=== PATIENT | male | born 1995 | race Two or more races ===

== ENCOUNTER 2020-02-25 16:17 | Observation (INO) ==
[2020-02-25] MEDS ORDERED: ONDANSETRON INJ 2 MG/ML 2 ML VIAL IV STA (17:01)
[2020-02-25] MEDS ORDERED: MoRPHine SULFATE 4 MG/ML 1 ML CARP\\VIAL IV STA (17:01)
--- NOTE | 2020-02-25 17:06 | Emergency Department Note ---
History of Present Illness General Chief complaint: Abdominal Pain Stated complaint: ABD PAIN Time Seen by Provider: 02/25/20 16:50 Source: patient Limitations: no limitations History of Present Illness Provider complaint: Abdominal pain Onset (ago): hour(s) Location: abdomen, left and right Radiation: non-radiation Severity: severe Maximum Pain Intensity: 8 Current Pain Intensity: 4 Quality: + burning Relieved By: + other (Vomiting) Associated symptoms: + cough (Chronic cough with no recent change) and + nausea/vomiting; no chest pain, no fever/chills and no shortness of breath This is a 24-year-old male who presents with abdominal pain starting at approximately 7 AM this morning. The patient states he stayed up all night. At 6 AM he ate 3 bananas and ate cookies. He try to go to bed but was having lower abdominal pain which made it difficult for him to sleep. He describes the pain as a dry burning pain. It was originally an 8 out of 10 in severity but after vomiting he states it is now 4 out of 10. He denies any associated fevers, ch est pain, shortness of breath, diarrhea or urinary symptoms. The patient states that his last bowel movement was 24 hours ago. He denies any known exposure to COVID-19. He does state that he has a chronic cough and has exercise-induced asthma. He denies recent alcohol use other than 3 days ago but only stated that he had a little bit. Home Medications Home Medications Medication Instructions Recorded Confirmed Type cetirizine [Zyrtec] 10 mg PO DAILY PRN 02/25/20 02/25/20 History Allergies Allergy/AdvReac Type Severity Reaction Status Date / Time avocado AdvReac "Cannot Unverified 02/25/20 17:17 process them" ibuprofen AdvReac Unknown Unverified 02/25/20 17:17 Past Med/Surg History Medical History Exercise-induced asthma Social History Preferred Language: Malay Feels Safe at Home: Yes Smoking Status: Current every day smoker Hx Alcohol Use: Yes Hx Substance Use: Yes substance use type: marijuana Last Used Substance: Hours (ago) (24 hours) Review of Systems See HPI for pertinent positives & negatives. and A total of 10 systems reviewed and were otherwise negative Physical Exam Vital Signs Vital Signs - 24 hr 02/25/20 16:42 02/25/20 18:49 Temperature 37.0 C Temperature Source Oral Pulse Rate 59 L Pulse Rate [Apical] 82 Respiratory Rate 16 18 Blood Pressure 113/58 L Blood Pressure [Right Arm] 138/81 Blood Pressure Mean 76 Blood Pressure Mean [Right Arm] 100 Pulse Oximetry 97 100 Oxygen Delivery Method Room Air Room Air Sepsis Recent Fever Within 48 Hours No Sepsis New/Unexplained Change in Mental Status No Sepsis Action Taken by Nursing No Action Required Constitutional: Vital signs reviewed. Eyes: Pupils are equal round reactive to light. Conjunctiva are noninjected. ENT: Pharynx is clear without erythema or exudate. Mucous membranes are dry. Neck supple without meningeal signs. Respiratory: Clear to auscultation bilaterally. Breath sounds are equal bilaterally. Cardiovascular: Regular rate and rhythm. No rubs or gallops. GI: Soft, nondistended with diffuse tenderness throughout. No guarding. Bowel sounds are present. Musculoskeletal: No peripheral edema. No CVA tenderness. Integumentary: No cyanosis. or jaundice. Neurological: The patient is awake and alert. No focal deficits. Psychiatric: Normal affect. Not anxious appearing. Course Administered Medications Ioversol (Optiray 320 100ml) 93 ml IV ONCE PRN PRN Reason: Interaction Checking Stop: 02/29/20 17:55 Last Admin: 02/25/20 17:57 Dose: 93 ml Documented by: [id number] Discontinued Medications Bupivacaine HCl (Marcaine 0.5% Mpf) Confirm Administered Dose 30 ml .ROUTE .STK- MED ONE Stop: 02/25/20 19:17 Last Admin: 02/25/20 21:20 Dose: 22 ml Documented by: [id number] Sodium Chloride (Nss 1000ml) 1,000 mls @ 999 mls/hr IV .Q1H1M [facility] Stop: 02/25/20 18:15 Last Infusion: 02/25/20 18:51 Dose: 0 mls/hr Documented by: [id number] Admin: 02/25/20 17:39 Dose: 999 mls/hr Documented by: [id number] Cefoxitin Sodium (Mefoxin) 2,000 mg in 60 mls @ 100 mls/hr IV NOW STA Stop: 02/25/20 19:41 Last Admin: 02/25/20 19:36 Dose: 100 mls/hr Documented by: [id number] Morphine Sulfate (Morphine Sulfate) 4 mg IV NOW STA Stop: 02/25/20 17:02 Last Admin: 02/25/20 17:39 Dose: 4 mg Documented by: [id number] Ondansetron HCl (Zofran) 4 mg IV NOW STA Stop: 02/25/20 17:02 Last Admin: 02/25/20 17:39 Dose: 4 mg Documented by: [id number] Medical Decision Making Differential Diagnosis Appendicitis, perforation, abscess, bowel obstruction, constipation, IBS, IBD Medical Records Attestation: I reviewed the patient's medical records. I did perform a limited focused review of portions of the patient's old chart on the electronic medical record. The patient has had no prior visits to this hospital. Home Medications Current Medication List: was personally reviewed by me Laboratory Data Attestation: I reviewed the patient's lab results. Result diagrams: 02/25/20 17:26 02/25/20 17:26 Lab Results 02/25/20 02/25/20 Range/Units 17:26 17:26 WBC 9.31 (4.8-10.8) K/uL RBC 5.00 (4.7-6.1) M/uL Hgb 16.1 (14.0-18.0) g/dL Hct 45.5 (42-52) % MCV 91.0 (80-100) fL MCH 32.2 (25-34) pg MCHC 35.4 (32-36) g/dL RDW Std Deviation 41.5 (36.4-46.3) fL RDW Coeff of Cash 12.5 (11.5-14.5) % Plt Count 288 (130-400) K/uL MPV 9.9 (7.4-10.4) fL Immature Gran % (Auto) 0.2 % Neut % (Auto) 79.3 % Lymph % (Auto) 11.2 % [place] % (Auto) 8.2 % Eos % (Auto) 0.9 % Baso % (Auto) 0.2 % Neut # (Auto) 7.39 H (1.4-6.5) K/uL Lymph # (Auto) 1.04 L (1.2-3.4) K/uL [place] # (Auto) 0.76 H (0.11-0.59) K/uL Eos # (Auto) 0.08 (0-0.5) K/uL Baso # (Auto) 0.02 (0-0.2) K/uL Immature Gran # (Auto) 0.02 (0.00-0.02) K/uL Sodium 138 (136-145) mmol/L Potassium 4.1 (3.5-5.1) mmol/L Chloride 104 (98-107) mmol/L Carbon Dioxide 28 (21-32) mmol/L Anion Gap 6.0 (3-11) BUN 13 (7-18) mg/dl Creatinine 1.18 (0.6-1.4) mg/dl Est Cr Clr Drug Dosing 144.4 ml/min Est GFR ( Amer) 100.9 Est GFR (Non-Af Amer) 87.1 BUN/Creatinine Ratio 11.1 (10-20) Glucose 88 (70-99) mg/dl Calcium 9.2 (8.5-10.1) mg/dl Total Bilirubin 0.5 (0.2-1) mg/dl AST 16 (15-37) U/L ALT 30 (12-78) U/L Alkaline Phosphatase 61 (45-117) U/L Total Protein 8.3 H (6.4-8.2) gm/dl Albumin 4.2 (3.4-5.0) gm/dl Globulin 4.1 H (2.5-4.0) gm/dl Albumin/Globulin Ratio 1.0 (0.9-2) Lipase 107 (73-393) U/L Imaging Data Radiologist's Impression: CT abd pelvis IV con only CLINICAL HISTORY: Right lower quadrant abdominal pain COMPARISON STUDY: None. TECHNIQUE: The patient was scanned in a dynamic helical fashion during intravenous administration of 93 cc of Optiray 320. A dose lowering technique was utilized adhering to the principles of ALARA. CT DOSE: 1789.72 mGy.cm FINDINGS: Lower chest: The heart is normal in size and configuration, without pericardial effusion. The lung bases and pleural spaces are clear. Liver: The contrast-enhanced liver is normal in size, contour, and attenuation. There is no intrahepatic biliary ductal dilatation. The hepatic veins and portal veins are patent. Gallbladder: Unremarkable. Spleen: Normal in size and attenuation. Pancreas: Unremarkable. Adrenal glands: Unremarkable. Kidneys: There is symmetric renal cortical enhancement. The kidneys are normal in size without hydronephrosis. Bowel: There are no transition zones to indicate bowel obstruction. There is no evidence of acute diverticulitis. There is a dilated fluid-filled appendiceal tip measuring 1 cm in diameter. There is an appendicolith. There is minimal periappendiceal stranding. The findings are suggestive of early acute appendicitis. Peritoneum: There is no intraperitoneal free air or abdominal ascites. Vasculature: The abdominal aorta is normal in course and caliber. Adenopathy: None. Pelvic viscera: The bladder, and pelvic viscera are unremarkable. Skeletal structures: No destructive osseous lesions are seen. IMPRESSION: 1. Long appendix with a distal appendicolith and dilatation of the appendiceal tip which measures 1 cm with subtle periappendiceal stranding. In the setting of right lower quadrant abdominal pain, the findings are indicative of acute appendicitis and surgical consultation is recommended ACT 112: Negative or not required by law. Electronically signed by: Ken De Luna M.D. 02/25/2020 6:08 PM Dictated: 02/25/201802 Transcribed: 02/25/201802 Blood Pressure Blood Pressure Findings: Low blood pressure MDM Narrative I did evaluate the patient as noted above. IV access was established. I did treat him with IV morphine and Zofran. He was also given a liter normal saline IV. I did order a urine analysis. I did order and review the patient's blood work as noted in the electronic medical record. His white blood cell count is not elevated. LFTs and electrolytes are unremarkable. I did order a CT of the abdomen and pelvis. I did review the images myself as well as the radiology report as described above. He does have acute appendicitis without complication. I did discuss the test results with the patient. I did discuss the case with the surgical service. He was taken to the OR for appendectomy. Impression & Plan Acute appendicitis Discharge Plan Visit Data *Final* Discharge Date/Time: 02/25/20 19:41 Chief Complaint: Abdominal Pain Stated Complaint: ABD PAIN ED Provider: Ton Mohan Discharge Problem: Acute appendicitis Patient Disposition: Admitted As Inpatient Discharge Instructions Interventions: ED Discharge Assessment Last Done: 02/25/20 19:36
[2020-02-25] MEDS ORDERED: SODIUM CHLORIDE 0.9% 1000ML 1,000 ML IV SCH (17:15)
[2020-02-25 17:35] LABS: Basophils # (auto) 0.02 K/uL (0-0.2); Basophils % (auto) 0.2 %; Eosinophils # (auto) 0.08 K/uL (0-0.5); Eosinophils % (auto) 0.9 %; Hematocrit (blood only) 45.5 % (42-52); Hemoglobin 16.1 g/dL (14.0-18.0); Immature Granulocytes # (auto) 0.02 K/uL (0.00-0.02); Immature Granulocytes % (auto) 0.2 %; Lymphocytes # (auto) 1.04 K/uL (1.2-3.4); Lymphocytes % (auto) 11.2 %; Mean Corpuscular Hemoglobin 32.2 pg (25-34); Mean Corpuscular Hgb Conc 35.4 g/dL (32-36); Mean Platelet Volume 9.9 fL (7.4-10.4); Monocytes # (auto) 0.76 K/uL (0.11-0.59); Monocytes % (auto) 8.2 %; Neutrophils # (auto) 7.39 K/uL (1.4-6.5); Neutrophils % (auto) 79.3 %; Platelet Count 288 K/uL (130-400); RDW Coefficient of Variation 12.5 % (11.5-14.5); RDW Standard Deviation 41.5 fL (36.4-46.3); White Blood Count 9.31 K/uL (4.8-10.8)
[2020-02-25 17:55] LABS: Albumin Level 4.2 gm/dl (3.4-5.0); BUN Creatinine Ratio 11.1 (10-20); Calcium 9.2 mg/dl (8.5-10.1); Creatinine Clr Calc Pharmacy 144.4 ml/min; Est GFR (African American) 100.9; Est GFR (Non-African American) 87.1; Potassium 4.1 mmol/L (3.5-5.1)
[2020-02-25] MEDS ORDERED: IOVERSOL 100ml IV PRN (17:56)
[2020-02-25 17:58] LABS: Bilirubin,Total 0.5 mg/dl (0.2-1); Globulin 4.1 gm/dl (2.5-4.0); Total Protein 8.3 gm/dl (6.4-8.2)
--- NOTE | 2020-02-25 18:10 | CT Scan Report ---
CT abd pelvis IV con only CLINICAL HISTORY: Right lower quadrant abdominal pain COMPARISON STUDY: None. TECHNIQUE: The patient was scanned in a dynamic helical fashion during intravenous administration of 93 cc of Optiray 320. A dose lowering technique was utilized adhering to the principles of ALARA. CT DOSE: 1789.72 mGy.cm FINDINGS: Lower chest: The heart is normal in size and configuration, without pericardial effusion. The lung ba ses and pleural spaces are clear. Liver: The contrast-enhanced liver is normal in size, contour, and attenuation. There is no intrahepa tic biliary ductal dilatation. The hepatic veins and portal veins are patent. Gallbladder: Unremarkable. Spleen: Normal in size and attenuation. Pancreas: Unremarkable. Adrenal glands: Unremarkable. Kidneys: There is symmetric renal cortical enhancement. The kidneys are normal in size without hydron ephrosis. Bowel: There are no transition zones to indicate bowel obstruction. There is no evidence of acute div erticulitis. There is a dilated fluid-filled appendiceal tip measuring 1 cm in diameter. There is an appendicolith. There is minimal periappendiceal stranding. The findings are suggestive of early acute appendicitis. Peritoneum: There is no intraperitoneal free air or abdominal ascites. Vasculature: The abdominal aorta is normal in course and caliber. Adenopathy: None. Pelvic viscera: The bladder, and pelvic viscera are unremarkable. Skeletal structures: No destructive osseous lesions are seen. IMPRESSION: 1. Long appendix with a distal appendicolith and dilatation of the appendiceal tip which measures 1 c m with subtle periappendiceal stranding. In the setting of right lower quadrant abdominal pain, the f indings are indicative of acute appendicitis and surgical consultation is recommended ACT 112: Negative or not required by law. Electronically signed by: Ken De Luna M.D. 02/25/2020 6:08 PM
[2020-02-25] MEDS ORDERED: cefOXitin 2,000 MG/60 ML BAG IV STA (19:06)
--- NOTE | 2020-02-25 19:09 | Anesthesiology Consultation ---
Date of Service February 25, 2020 Assessment & Plan Chart Review Chart Review: Acceptable Risk for Surgery and Patient NOT seen in Pre Admission Testing Consults Requested none ASA [id number] Proposed Anesthesia Anesthesia Type: General Risk / Benefits Reviewed With: PT / POA / Parent / Guardian, Accepts Plan and Informed Consent Obtained Additional Comments: not covid tested History Surgery Operation Date: 02/25/20 19:20 Proposed Procedures p Laparoscopic Appendectomy - Calin Zhang, DO, FACS Height/Weight Height: 6 ft 1 in Weight: 140 kg Allergies Allergy/AdvReac Type Severity Reaction Status Date / Time avocado AdvReac "Cannot Unverified 02/25/20 17:17 process them" ibuprofen AdvReac Unknown Unverified 02/25/20 17:17 Medications Home Medications Medication Instructions Recorded Confirmed Last Taken cetirizine [Zyrtec] 10 mg PO DAILY PRN 02/25/20 02/25/20 Unknown Active Medications Generic Name Dose Route Start Last Admin Trade Name Freq PRN Reason Stop Dose Admin Ioversol 93 ml 02/25/20 17:56 02/25/20 17:57 Optiray 320 100ml IV 02/29/20 17:55 93 ml ONCE PRN Administration Interaction Checking NPO Date Last Intake of Fluids: 02/25/20 Time Last Intake of Fluids: 15:00 Last Intake of Fluids Comment: pt vomited soon thereafter liquids Date Last Intake of Solids: 02/25/20 Time Last Intake of Solids: 08:00 Past Medical History Medical History Exercise-induced asthma Exercise / Class Metabolic Activity II 4-5 Yardwork/Stairs/Walk up hill Past Anesthesia History No Hx of Anesthesia Complications and No Family Hx of Anesthesia Complications History of PONV No Hx of PONV and No Hx of Motion Sickness Social History Smoking Status: Current every day smoker Hx Alcohol Use: Yes Hx Substance Use: Yes substance use type: marijuana Last Used Substance: Hours (ago) (24 hours) Physical Exam Vital Signs Last Vital Signs Temp 37.0 C 02/25/20 16:42 Pulse 82 02/25/20 18:49 Resp 18 02/25/20 18:49 BP 138/81 02/25/20 18:49 Pulse Ox 100 02/25/20 18:49 Constitutional + morbidly obese ENMT Mouth: + dentition abnormality (braces); dentition not poor Thyromental Distance: > or= 3.5 Finger Breadths Mallampati Class: II Neck normal visual inspection, trachea midline, + thick neck and + facial hair; neck extension not limited Respiratory normal respiratory effort Auscultation: lungs clear to auscultation bilaterally Cardiovascular Rate/Rhythm: regular rate and regular rhythm Heart Sounds: no murmur Musculoskeletal Spine: normal cervical ROM Extremities: extremities normal to inspection Neurologic moves all extremities Motor/Sensory: no sensory deficit Psychiatric Orientation: alert and oriented x 3 Testing Laboratory Results 02/25/20 17:26 02/25/20 17:26
[2020-02-25] MEDS ORDERED: BUPIVACAINE 0.5 % 5 MG/1 ML MPF 30ML VIAL ONE (19:16)
--- NOTE | 2020-02-25 19:17 | History & Physical Report ---
Date of Service February 25, 2020 Assessment & Plan (1) Acute appendicitis: -plan on laparoscopic, possible open appendectomy today -pre-op antibiotics ordered -risk, benefits and alternative discussed with pt. 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 The pain shifted mostly to the RLQ, but is now generalized through his abdomen. No palliative or provocative factors noted. He denies fevers, but has had N/V. He ate some solid food around 0600 and has only had water about 5 hours ago but he notes having N/V shortly after drinking the water. In the ED he was in no distress, was afebrile with normal WBC. CT scan of the abdomen showed findings concerning for acute appendicitis. Allergies Allergy/AdvReac Type Severity Reaction Status Date / Time avocado AdvReac "Cannot Unverified 02/25/20 17:17 process them" ibuprofen AdvReac Unknown Unverified 02/25/20 17:17 Home Medications Home Medications Medication Instructions Recorded Confirmed Type cetirizine [Zyrtec] 10 mg PO DAILY PRN 02/25/20 02/25/20 History Past Med/Surg History Medical History Exercise-induced asthma Social History Preferred Language: Pashto Feels Safe at Home: Yes Smoking Status: Current every day smoker Hx Alcohol Use: Yes Hx Substance Use: Yes substance use type: marijuana Last Used Substance: Hours (ago) (24 hours) Review of Systems Constitutional: no fever and no sweats Eyes: no diplopia Ear, Nose, Mouth, Throat: no ear pain Respiratory: no cough and no dyspnea Cardiovascular: no chest pain Gastrointestinal: + abdominal pain, + nausea and + vomiting Genitourinary: no dysuria Musculoskeletal: no back pain Integumentary: no rash Neurologic: no localized weakness Physical Exam Constitutional: well developed and well nourished; no acute distress Eyes: no conjunctival abnormality ENMT: Ears: no hearing impairment Nose: + dry nasal mucous membranes Neck: trachea midline Respiratory: normal respiratory effort, lungs clear to auscultation Cardiovascular: Rate/Rhythm: regular rate and regular rhythm Vessels: dorsalis pedis pulses present and radial pulses present Gastrointestinal (Abdomen): abdomen is soft, rotund, and not-distended; BS are hypoactive; pain noted most pronounced in RLQ with rebound tenderness noted. (+) Rovsing sign Musculoskeletal: no calf tenderness Skin: no rashes, warm and dry Neurologic: moves all extremities Psychiatric: A+Ox3, euthymic affect Results & Data Results & Data ([facility]) Vital Signs (Past 12 Hours) Vital Signs Temp Pulse Pulse Resp BP BP Pulse Ox 02/25/20 18:49 82 18 138/81 100 02/25/20 16:42 37.0 C 59 L 16 113/58 L 97 Supervising Physician Co-Signing Physician Notes Patient seen and examined, labs and imaging reviewed, agree with above. 24-year-old male presents to the emergency department with abdominal pain. On exam he is afebrile with stable vitals. Tender to palpation in the right lower quadrant with guarding at McBurney's point. No leukocytosis but predominant neutrophilia. CT scan showed inflammation of the distal appendix with an appendicolith consistent with appendicitis and no evidence of perforation. Acute appendicitis Plan for laparoscopic appendectomy The risk the procedure were discussed to include but not limited to bleeding, infection, normal appendix, conversion to open, damage surrounding structures, need for future more extensive surgery, and the risk of anesthesia The diagnosis, details the procedure and recovery, and plan of care were discussed with the patient, all questions were answered, the patient expressed understanding agrees the plan of care as stated PG Care Time/CCT Total # of Minutes Spent Total Time Spent with Patient: Total time spent is greater than 50% in coordination of care (as documented) at patient's floor/unit and/or counseling patient: Coding Level of Care Code 00656 OBS Care - Level 3 Diagnoses Acute appendicitis K35.80
[2020-02-25] MEDS ORDERED: LIDOCAINE HCL 2% 2 ML VIAL/AMP(20MG/ML) INFIL ONE (19:40)
[2020-02-25] MEDS ORDERED: ONDANSETRON INJ 2 MG/ML 2 ML VIAL ONE ×2 (19:40→20:49)
[2020-02-25] MEDS ORDERED: PROPOFOL IV EMULSION 10 MG/ML 20 ML VIAL IV ONE ×2 (19:40→20:46)
[2020-02-25] MEDS ORDERED: DEXAMETHASONE SOD INJ 4 MG/ML VIAL ONE (19:40)
[2020-02-25] MEDS ORDERED: SUCCINYLCHOLINE CHLORIDE 20 MG/ML 10 ML VIAL IV ONE (19:40)
[2020-02-25] MEDS ORDERED: ROCURONIUM BROMIDE 10 MG/ML 5 ML VIAL IV ONE (19:40)
[2020-02-25] MEDS ORDERED: MIDAZOLAM HCL 1 MG/ML 2ML VIAL ONE (19:49)
[2020-02-25] MEDS ORDERED: fentaNYL citrate 100 MCG/2 ML VIAL ONE (19:49)
[2020-02-25] MEDS ORDERED: DexMEDEtomidine HCL IV 100 MCG/ML VIAL ONE (20:02)
[2020-02-25] MEDS ORDERED: HYDROmorphone INJ 2 MG/ML SYR/VIAL ONE (20:48)
[2020-02-25] MEDS ORDERED: PHENYLEPHRINE HCL 10 MG/ML VIAL ONE (20:54)
--- NOTE | 2020-02-25 21:27 | Operative Report ---
PG Post Operative Report Pre & Post Diagnosis Operation Date: 02/25/20 19:20 Pre-Op Diagnosis: Acute appendicits Post-Op Diagnosis: Acute nonperforated appendicits I identified the patient and participated in the time-out.: Yes Procedure Operation Date: 02/25/20 19:20 Actual Procedures p Laparoscopic Appendectomy - Calin Zhang DO, FACS Surgeon Calin Zhang DO, FACS Practicing Md Anesthesiologist Zain Louis Estimated Blood Loss 5 Findings Consistent with Post-Op Diagnosis Retrocecal appendix with tip appendicitis. Mobilized with harmonic scalpel. Stable to base. Good hemostasis. No perforation. Specimens Appendix Anesthesia Type General Complications none Disposition Accompanied Patient To Recovery: No Disposition: Recovery Room Indications 24-year-old male who presents with a signs and symptoms of acute appendicitis confirmed by CT scan. Plan for laparoscopic appendectomy. The risks of the procedure were discussed, all questions were answered, and the patient agreed to proceed with surgery as planned. Description of Procedure The patient was properly identified, consented, and taken to the operating room where he was placed in the supine position. General endotracheal anesthesia was induced. SCDs and a safety belt were placed. Preoperative antibiotics were administered. A Leonard catheter was not placed. The patient's abdomen was prepped and draped in the standard sterile fashion. Surgical timeout was performed and all parties were in agreement that this was the correct patient and procedure to be performed and we continued as planned. A curvilinear infraumbilical incision was made with electrocautery and deepened down to the fascia with blunt dissection. The base of the umbilicus was grasped with a Oneal and elevated towards the ceiling. An incision was made in the midline fascia with a knife and entry into the peritoneum was confirmed. Stay suture of 0 Vicryl was placed and a Teran trocar was inserted. The abdomen was insufflated with carbon dioxide which the patient tolerated without incident. The laparoscope was inserted and no damage from initial trocar placement was noted, no gross abnormalities were noted within the 4 quadrants the abdomen. 5 mm ports were then placed in the left lower quadrant with care not to damage the epigastric vessels, and in the suprapubic midline with care not to damage the bladder. The patient was placed in Trendelenburg position and rotated towards the left. The small bowel was swept away from the right lower quadrant. The cecum was gr asped with an atraumatic grasper exposing the appendix. The appendix was retrocecal and the tip was inflamed. There was no evidence of perforation. There was no fluid in the pelvis. The appendix was mobilized using the harmonic scalpel. The mesoappendix was divided with the harmonic scalpel and hemostasis was good. A albright loaded endoscopic stapler was then used to divide the appendix at its base. Hemostasis was good. The appendix was placed in an Endo Catch bag and removed through the umbilical port site. The right lower quadrant and pelvis was irrigated and hemostasis was found to be good. 5 mm trochars were removed under direct visualization and the abdomen was allowed to collapse. The umbilical port site fascia was closed with 0 Vicryl suture. The wound was irrigated, and the skin of all ports was closed with 4-0 Monocryl subcuticular sutures. Dermabond was placed over the wounds. The patient was extubated in the operating room and taken to the PACU where he recovered without apparent incident. All sponge, instrument and needle counts were correct at the conclusion of the procedure. The patient tolerated the procedure well. The physician's surveyor's assistant was present and scrubbed for the entire to the case. He was critical in positioning the patient, prepping and draping, retraction and exposure, driving the laparoscope, closure of the incisions and placement of the dressings. I attest to the content of the Intraoperative Record and any orders documented therein. Any exceptions are noted below.
[2020-02-25] MEDS ORDERED: ePHEDrine sulfate 50 MG/ML AMP IV PRN (22:08)
[2020-02-25] MEDS ORDERED: fentaNYL citrate 100 MCG/2 ML VIAL IV PRN (22:08)
[2020-02-25] MEDS ORDERED: PROMETHAZINE HCL 12.5 MG in SODIUM CHLORIDE 0.9% 50 ML IV PRN (22:08)
[2020-02-25] MEDS ORDERED: ATROPINE SULFATE 0.1 MG/ML 10ML SYR IV PRN (22:08)
--- NOTE | 2020-02-25 22:23 | Anesthesiology Progress Note ---
Date of Service February 25, 2020 Anesthesia Post Procedure Vital Signs Vital Signs: Temp Pulse Pulse Resp BP BP Pulse Ox 02/25/20 22:20 81 13 137/75 100 02/25/20 22:10 37 C 79 19 128/63 97 02/25/20 22:01 37 C 74 18 143/71 H 100 02/25/20 18:49 82 18 138/81 100 02/25/20 16:42 37.0 C 59 L 16 113/58 L 97 Pain Intensity Abdomen: Pain Intensity: 3 Transfer of Care Handoff Completed per policy Notes Mental Status: alert / awake / arousable and participated in evaluation Patient Amnestic to Procedure: Yes Nausea / Vomiting: adequately controlled Pain: adequately controlled Airway Patency, RR, SpO2: stable & adequate BP & HR: stable & adequate Hydration State: stable & adequate Anesthetic Complications: no major complications apparent and Pt Satisfied with anesthetic care
[2020-02-25] MEDS ORDERED: CETIRIZINE HCL 10 MG TABLET PO PRN (22:31)
[2020-02-25] MEDS ORDERED: ONDANSETRON INJ 2 MG/ML 2 ML VIAL IV PRN (22:31)
[2020-02-25] MEDS ORDERED: MoRPHine SULFATE 4 MG/ML 1 ML CARP\\VIAL IV PRN (22:31)
[2020-02-25] MEDS ORDERED: OXYCODONE HCL IR 5 MG TAB (IMMEDIATE RELEASE) PO PRN (22:31)
[2020-02-26] MEDS: ACETAMINOPHEN 1,000 MG/100 ML VIAL IV SCH ×2 (00:47→05:58)
[2020-02-26] MEDS: LACTATED RINGER'S 1,000 ML IV SCH ×2 (01:05→14:53)
[2020-02-26 05:04] LABS: Appearance Urine Clear (Clear); Bilirubin Urine Negative (Negative); Blood Urine Negative (Negative); Color Urine Yellow; Glucose Urine UA Negative (Negative); Ketones Urine Negative (Negative); Leukocyte Esterase Urine Negative (Negative); Nitrite Urine Negative (Negative); Protein Urine Negative (Negative); Specific Gravity Urine 1.028 (1.000-1.030); Urobilinogen Urine Negative (Negative); pH Urine 7.5 (4.5-7.5)
[2020-02-26] MEDS ORDERED: DiphenhydrAMINE HCL 50 MG/ML VIAL IV STA (11:17)
--- NOTE | 2020-02-26 11:34 | Surgery Progress Note ---
Date of Service February 26, 2020 Assessment & Plan (1) Acute appendicitis: stable post op will give benadryl for rash, ? cause, had only Ofirmev this morning Supervising Physician Co-Signing Physician Notes Patient seen and examined, agree with above. POD #1 laparoscopic appendectomy. Overall feels good, pain controlled, tolerated diet. He was expressing some complaints of pruritus this morning, and after I saw him he developed a rash. He was given some Zyrtec, followed by some Benadryl. Unclear as to the etiology, may be related to the prep or possibly to medication. On exam is afebrile with stable vitals. Abdomen with Dermabond in place, incisions with Dermabond. Benadryl for rash of unclear etiology If the rash clears he is okay to discharge to home Activity restrictions and wound care instructions reviewed Follow-up in 2 weeks Subjective had breakfast, developed rash and itching this morning Physical Exam Gastrointestinal (Abdomen): Inspection/Auscultation: + abdominal surgical incision (dry); abdomen not distended Skin: + rash (trunk front and back) Results & Data Vital Signs (Past 12 Hours) Vital Signs Temp Pulse Resp BP Pulse Ox 02/26/20 07:16 36.9 C 56 L 16 100/59 L 97 02/26/20 04:02 36.8 C 68 16 122/64 93 02/26/20 01:29 37.3 C 77 16 142/65 H 94 02/26/20 00:53 37.1 C 86 18 141/84 H 95 02/25/20 23:31 37.4 C 89 16 118/74 95 PG Care Time/CCT Total # of Minutes Spent Total Time Spent with Patient: Total time spent is greater than 50% in coordination of care (as documented) at patient's floor/unit and/or counseling patient: Coding Level of Care Code None Diagnoses Acute appendicitis K35.80 Acute appendicitis type: unspecified acute appendicitis type (1) Acute appendicitis Acute appendicitis type: unspecified acute appendicitis type Qualified Code(s): K35.80 - Unspecified acute appendicitis
--- NOTE | 2020-02-26 15:09 | Discharge Summary ---
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 The pain shifted mostly to the RLQ, but is now generalized through his abdomen. No palliative or provocative factors noted. He denies fevers, but has had N/V. He ate some solid food around 0600 and has only had water about 5 hours ago but he notes having N/V shortly after drinking the water. In the ED he was in no distress, was afebrile with normal WBC. CT scan of the abdomen showed findings concerning for acute appendicitis. Principal Diagnosis Acute appendicitis Discharge Exam Gastrointestinal (Abdomen) Inspection/Auscultation: + abdominal surgical incision (clean, dry); abdomen not distended Percussion/Palpation: abdomen soft Skin no rashes, warm and dry Discharge Data Allergies Allergy/AdvReac Type Severity Reaction Status Date / Time avocado AdvReac "Cannot Unverified 02/25/20 17:17 process them" ibuprofen AdvReac Unknown Unverified 02/25/20 17:17 Consultations 02/25/20 18:23 ED Decision to Admit Stat Procedures Performed Operation Date: 02/25/20 19:20 Actual Procedures p Laparoscopic Appendectomy - Calin Zhang DO, FACS Ordered Studies 02/25/20 17:01 CT abd pelvis IV con only Stat Hospital Course (1) Acute appendicitis: 24 y/o male presented to the ER with abdominal pain. White count was normal although CT was consistent with acute appendicitis. He was taken to the operating room for laparoscopic appendectomy and transferred to the surgical floor for overnight observation. In the morning he was able to advance diet. He developed a rash after breakfast, had only been medicated with Ofirmev and takes Tylenol at home as needed. The rash resolved once he was given Benadryl. He was observed for a few more hours and was stable for discharge home after lunch. Total Time Total Time Spent Total Time Spent (In Minutes): 10 Discharge Plan Discharge Items Patient Disposition: Home - Self-Care Reason For Visit: APPENDICITIS Discharge Diagnosis: appendectomy Activity: As commented below Lifting: No more than 10 pounds Bathing: No limitations Driving/Machine Use: Resume 3 days after discharge Non-emergency contact: Surgeon Call non-emergency contact if: you have any medication questions, your pain is not controlled, you have a fever, your temperature is above 101.5 and your wound has increased redness Follow-up/Referrals: Calin Zhang DO, FACS [Physician] - (Call the office to make an appt in 2 weeks) [facility] [Primary Care Provider] - 03/04/20 3:00 pm Diet: Regular Addtl Attending Provider Instructions: You can take Benadryl 25 mg 1-2 tabs as needed for itching or rash Pending Studies at Discharge: No Stand-Alone Forms: My [facility] [employer], Work/School Release (Inpt), Smoking Cessation Medications and DC Order Prescriptions: New oxycodone-acetaminophen [Percocet] 5-325 mg tablet 1 - 2 tab PO Q4H PRN (Reason: pain, initial therapy, max 6 daily) Qty: 15 RF: 0 Continued cetirizine [Zyrtec] 10 mg Tablet 10 mg PO DAILY PRN (Reason: Allergy Symptoms) RF: 0 Discharge Orders: Discharge Order (Routine); Ordered 02/26/20 Ordered By: Néstor Courtney/Other Patient Handouts: Appendectomy Admission Data Admit Date/Time: 02/25/20 21:51 Attending Provider: Calin Zhang Admit Provider: Calin Zhang Primary Care Provider: [facility] Other Providers: Calin Zhang Other Interventions: Discharge Summary Assessment (RN) Last Done: 02/26/20 14:35 Coding Level of Care Code D/C Day Management <30 mins Diagnoses Acute appendicitis K35.80 Acute appendicitis type: unspecified acute appendicitis type
== END 2020-02-26 15:50 | disposition home or self-care (01) ==
LOC: ED 16:17 → OR 19:41 → 3E 19:41